=== PATIENT | female | born 1975 | race Two or more races ===

== ENCOUNTER 2020-02-19 10:13 | Day surgery (SDC) | payer BC ==
[2020-02-18 09:33] LABS: BASOPHILS % (AUTO) 2 % (0-1); EOSINOPHILS % (AUTO) 1 % (1-7); LYMPHOCYTES % (AUTO) 35 % (22-44); MEAN CORPUSCULAR HGB CONC 31.8 g/dL (32.4-35.8); MEAN PLATELET VOLUME 8.7 fL (7.4-10.4); MONOCYTES % (AUTO) 6 % (2-9); NEUTROPHILS % (AUTO) 56 % (42-75); PLATELET COUNT 519 x10^3/uL (130-400); RED BLOOD COUNT 3.74 x10^6/uL (3.82-5.3); RED CELL DISTRIBUTION WIDTH 22.5 % (9.6-15.2)
[2020-02-18 09:48] LABS: ALBUMIN 3.3 g/dL (3.4-5.0); ANION GAP 7 mmol/L (5-15); CALCIUM 8.3 mg/dL (8.5-10.1); CHLORIDE 107 mmol/L (98-107)
[2020-02-18 09:51] LABS: MICROSCOPIC AUTO
[2020-02-18 09:56] LABS: ALANINE AMINOTRANSFERASE 14 U/L (12-78); ALKALINE PHOSPHATASE 69 U/L (45-117); BILIRUBIN,TOTAL 0.3 mg/dL (0.2-1.0); CREATININE 0.64 mg/dL (0.55-1.02); TOTAL PROTEIN 8.2 g/dL (6.4-8.2)
[2020-02-18 10:52] LABS: MD SCAN
[~2020-02-19] VITALS: Ht 160 cm; Wt 66.1 kg
[~2020-02-19 10:13] MED LIST: SERT25TA PO; Thyroid Med PO
[2020-02-19] MEDS ORDERED: BUPIVACAINE/PF 0.25% ONE (10:53)
[2020-02-19] MEDS ORDERED: LIDOCAINE/PF 1%, 30ML ONE (10:54)
[2020-02-19] MEDS ORDERED: EPINEPHRINE 1 MG/ML, 1ML ONE (10:54)
[2020-02-19] MEDS ORDERED: NEOMY/POLYMYXIN B GU IRR. 1 ML ONE (10:55)
[2020-02-19 10:56] VITALS: BP 128/84
[2020-02-19] MEDS ORDERED: CHLORHEXIDINE 15 ML UDC MM ONE (11:00)
[2020-02-19] MEDS ORDERED: LACTATED RINGERS 1,000 ML IV SCH (11:00)
[2020-02-19] MEDS ORDERED: INDIGO CARMINE 0.8%, 5ML ONE (11:03)
[2020-02-19] MEDS ORDERED: SODIUM CHLORIDE 0.9% 50 ML ONE (11:03)
[2020-02-19] MEDS ORDERED: CHLORHEXIDINE 15 ML UDC ONE (11:03)
[2020-02-19] MEDS ORDERED: LIDOCAINE 1%, 20ML ONE (11:27)
[2020-02-19] MEDS ORDERED: MIDAZOLAM 1 MG/ML, 2ML ONE (11:37)
[2020-02-19] MEDS ORDERED: FENTANYL PF 250 MCG/5ML ONE (11:37)
[2020-02-19] MEDS ORDERED: NEOMY/POLYMYXIN B GU IRR. 1 ML IRRIG ONE (12:01)
[2020-02-19] MEDS ORDERED: LIDOCAINE 1%-EPI 1:100K, 30ML INFIL ONE (12:01)
[2020-02-19] MEDS ORDERED: BUPIVACAINE/PF-EPI 0.25% 1:200K INFIL ONE (12:01)
[2020-02-19] MEDS ORDERED: LORazepam 2 MG/ML, 1ML IVPush PRN (12:30)
[2020-02-19] MEDS ORDERED: hydrALAzine 20 MG/ML, 1ML IV PRN (12:30)
[2020-02-19] MEDS ORDERED: METHOCARBAMOL 1,000 MG in DEXTROSE 5% 100 ML IV PRN (12:30)
[2020-02-19] MEDS ORDERED: ONDANSETRON 2MG/ML, 2ML IVPush PRN (12:30)
[2020-02-19] MEDS ORDERED: ACETAMINOPHEN 325 MG TABLET PO PRN (12:30)
[2020-02-19] MEDS ORDERED: PROMETHAZINE 25 MG/ML, 1ML IVPush PRN (12:30)
[2020-02-19] MEDS ORDERED: OXYcodone 5 MG/5 ML ORAL.SOL UDC PO PRN (12:30)
[2020-02-19] MEDS ORDERED: LABETALOL 5MG/ML, 20ML IV PRN (12:30)
[2020-02-19] MEDS ORDERED: PROMETHAZINE 25 MG SUPP PR PRN (12:30)
[2020-02-19] MEDS ORDERED: BACITRACIN 50,000 UNIT ONE (12:37)
[2020-02-19] MEDS ORDERED: MANNITOL PMX 20% 500 ML ONE (13:15)
[2020-02-19] MEDS ORDERED: FENTANYL PF 100 MCG/2ML ONE ×3 (13:31→15:08)
[2020-02-19] MEDS ORDERED: CEFAZOLIN 1,000 MG ONE (14:30)
[2020-02-19] MEDS ORDERED: DEXAMETHASONE 4 MG/ML, 1ML ONE (14:30)
[2020-02-19] MEDS ORDERED: GLYCOPYRROLATE 0.2MG/1ML, 5ML ONE (14:30)
[2020-02-19] MEDS ORDERED: ROCURONIUM 10MG/ML,5ML ONE (14:30)
[2020-02-19] MEDS ORDERED: ONDANSETRON 2MG/ML, 2ML ONE (14:30)
[2020-02-19] MEDS ORDERED: SUCCINYLCHOLINE 20 MG/ML, 10ML ONE (14:30)
[2020-02-19] MEDS ORDERED: NEOSTIGMINE 1 MG/ML, 10ML ONE (14:30)
[2020-02-19] MEDS ORDERED: PROPOFOL 10 MG/ML, 20ML ONE (14:30)
[2020-02-19] MEDS ORDERED: OXYcodone 5 MG/5 ML ORAL.SOL UDC ONE (15:08)
[2020-02-19] MEDS: FENTANYL PF 100 MCG/2ML IV PRN ×2 (15:09→15:18)
[2020-02-19] MEDS ORDERED: ACETAMINOPHEN 650 MG/20.3 ML UDC ONE (15:32)
[2020-02-19] MEDS ORDERED: HYDROmorphone 1 MG/ML, 1ML INJ ONE (15:39)
[2020-02-19] MEDS: HYDROmorphone 1 MG/ML, 1ML INJ IVPush PRN ×2 (15:42→15:47)
== END 2020-02-19 19:43 | disposition home or self-care (01) ==
LOC: OUT 10:13
PROVIDERS: ATTEND Obstetrics & Gynecology Gynecology
DX: N93.9 Abnormal uterine and vaginal bleeding, unspecified (principal); N94.6 Dysmenorrhea, unspecified; N80.0 Endometriosis of uterus; N94.10 Unspecified dyspareunia; N81.10 Cystocele, unspecified; N81.6 Rectocele; N87.9 Dysplasia of cervix uteri, unspecified; R32 Unspecified urinary incontinence; D50.0 Iron deficiency anemia secondary to blood loss (chronic); K66.0 Peritoneal adhesions (postprocedural) (postinfection); Z20.828 Contact with and (suspected) exposure to other viral communicable diseases; Z79.3 Long term (current) use of hormonal contraceptives; Z79.899 Other long term (current) drug therapy
CPT/HCPCS: 36415; 57260; 57288; 58571; 71046; 80053; 81001; 84702; 85025; 86850; 86900; 87635; 88307; 93005; C1771; J0171; J0330; J0690; J1100; J1170; J2250; J2405; J2704; J2710; J2800; J3010; J7120; S2900